=== PATIENT | female | born 1990 | race African-American/Black ===

== ENCOUNTER 2017-03-04 18:14 | Emergency (ER) | payer OTHER | END 2017-03-04 18:59 | disposition home or self-care (01) | LOC: CED 18:14 | DX: R20.2 Paresthesia of skin (principal); F11.10 Opioid abuse, uncomplicated; F17.200 Nicotine dependence, unspecified, uncomplicated | CPT/HCPCS: 84703; 99282 ==

== ENCOUNTER 2017-03-27 23:24 | Emergency (ER) | payer OTHER ==
[2017-03-28 01:10] LABS: URINE SOURCE CLEAN CATCH
[2017-03-28 01:15] LABS: URINE APPEARANCE CLOUDY; URINE BLOOD 3+ (NEG); URINE COLOR DK YELLOW; URINE GLUCOSE NEG (NEG); URINE KETONE TRACE (NEG); URINE LEUKOCYTE ESTERASE 2+ (NEG); URINE NITRATE NEG (NEG); URINE PH 5.5 (5-8); URINE PROTEIN 1+ (NEG); URINE SPECIFIC GRAVITY 1.031 (1.003-1.035)
[2017-03-28 01:17] LABS: CULTURE INDICATED? YES; URBCS1 AUWI 25-50 /[HPF] (0-2); URINE BACTERIA AUWI 4+ (NEGATIVE); URINE SQUAMOUS EPITHELIAL CELL MOD /[HPF]; UWBCS1 AUWI 100-200 (0-5)
[2017-03-28 01:30] LABS: URINE BILIRUBIN NEG (NEG)
[2017-03-28 01:35] LABS: URINE MUCUS PRESENT
[2017-03-28 02:31] LABS: AMPHETAMINE POS (NEG); BARBITURATES NEG (NEG); BENZODIAZEPINES NEG (NEG); COCAINE NEG (NEG); MARIJUANA NEG (NEG); OPIATES NEG (NEG); TRICYCLIC ANTIDEPRESSANTS NEG (NEG); U METHADONE NEG (NEG)
[2017-03-31 16:09] LABS: CHLAMYDIA TRACH Not Detected (Not Detected); N GONOR Not Detected (Not Detected)
== END 2017-03-28 03:30 | disposition home or self-care (01) ==
LOC: CED 23:24
PROVIDERS: Nurse Practitioner
DX: N76.0 Acute vaginitis (principal); N39.0 Urinary tract infection, site not specified; F15.10 Other stimulant abuse, uncomplicated; F17.210 Nicotine dependence, cigarettes, uncomplicated
CPT/HCPCS: 80307; 81003; 84703; 87086; 87088; 87186; 87491; 87591; 87808; 87905; 96372; 99283; J1885

== ENCOUNTER 2017-04-09 12:19 | Emergency (ER) | payer OTHER ==
[2017-04-09 12:49] LABS: URINE SOURCE CLEAN CATCH
[2017-04-09 12:57] LABS: URINE APPEARANCE CLEAR; URINE BILIRUBIN NEG (NEG); URINE BLOOD NEG (NEG); URINE COLOR YELLOW; URINE GLUCOSE NEG (NEG); URINE KETONE TRACE (NEG); URINE LEUKOCYTE ESTERASE TRACE (NEG); URINE NITRATE NEG (NEG); URINE PH 6.5 (5-8); URINE PROTEIN NEG (NEG); URINE SPECIFIC GRAVITY 1.024 (1.003-1.035)
[2017-04-09 13:01] LABS: U HYALINE CASTS AUWI 0-2 /[LPF]; URBCS1 AUWI 0-2 /[HPF] (0-2); URINE BACTERIA AUWI NEG (NEGATIVE); URINE SQUAMOUS EPITHELIAL CELL OCC /[HPF]
[2017-04-09 13:03] LABS: CULTURE INDICATED? NO
[2017-04-09 13:19] LABS: AMPHETAMINE POS (NEG); BARBITURATES NEG (NEG); BENZODIAZEPINES NEG (NEG); COCAINE NEG (NEG); MARIJUANA NEG (NEG); OPIATES NEG (NEG); TRICYCLIC ANTIDEPRESSANTS NEG (NEG); U METHADONE NEG (NEG)
[2017-04-11 23:24] LABS: CHLAMYDIA TRACH Not Detected (Not Detected); N GONOR Not Detected (Not Detected)
== END 2017-04-09 13:32 | disposition home or self-care (01) ==
LOC: CED 12:19
PROVIDERS: Emergency Medicine
DX: R30.0 Dysuria (principal); F11.10 Opioid abuse, uncomplicated
CPT/HCPCS: 80307; 81003; 84703; 87491; 87591; 99283

== ENCOUNTER 2017-07-29 21:00 | Emergency (ER) | payer OTHER ==
[~2017-07-29] VITALS: Ht 154.9 cm; Wt 85.7 kg
== END 2017-07-30 01:43 | disposition home or self-care (01) ==
LOC: CED 21:00
DX: F11.10 Opioid abuse, uncomplicated (principal)
CPT/HCPCS: 99284